=== PATIENT | female | born 1960 | race Caucasian/White ===

== ENCOUNTER → 2017-04-10 | Outpatient (CLI) | payer MEDICARE ==
[~2017-04-10] MED LIST: ACET10SO PO; ALB0.5 IH; ALB0.5 INH; ALB17R INH; ALBU8.5H IH; ALP1 PO; ALPR-451 PO; ALPR-461 PO; AMIL1TAB PO; AMLO-104 PO; AMOX-559 PO; ASPI-1471 PO; ASPI-292 PO; ASPI-757 PO; ASPI-879 PO; ATOR20TA22 PO; ATOR20TA65 PO; AZE137NAPT NS; AZIT-17 PO; BAC15T TOP; BLOO1STR16 MC; CEFP200T18 PO; CEPH-13 PO; CEPH500C24 PO; CHOL200038 PO; CLON-303 PO; CLONAZAPAM; COZAAR; CYC10 PO; CYCL-277 PO; CYCL-332 PO; DOCU-416 PO; DOXY-181 PO; DULO30CA6 PO; EST625 PO; ESTR0.62 PO; ESTR1.2525 PO; FEXO180T74 PO; FEXO180T87 PO; FLU150 PO; FLU44R INH; FLU45SYR17 IM; FLU45SYR25 IM ONLY; FLU60SYR30 IM ONLY; FLUC150T40 PO; FLUT10SP; FLUT16SP19 NS; FURO-45 PO; GABA-547 PO; GABA-549 PO; GLIP-152 PO; GLIP-154 PO; GLUC500C29 PO; GOLYTE PO; HUMALOG SC; HYDR-4240 PO; INSU100I30 SQ; IRO150 PO; LANI SC; LANI SUBQ; LANS30CA63 PO; LEVO25TA61 PO; LEVO50TA86 PO; LINA5TAB PO; LOR5/325 PO; LOS50 PO; LOSA50TA67 PO; LOSA50TA72 PO; MEP50 PO; MEPE50TA30 PO; MET10 PO; MET850 PO; METF-408 PO; METF-410 PO; METF-415 PO; METH4TAB66 PO; METO-259 PO; MOD PO; MON10 PO; MONT10TA22 PO; MONT10TA4 PO; MULT-885 PO; MULT1CAP59 PO; NEED-396 MC; NEED-653 MC; NITR0.3T6 SL; NYSL PO; OLO2ODPT OP; ONDA4TAB PO; OXYGENHOME INH; P EP PO; PAN40 PO; PER PO; PHEN-530 PO; POTA20TA85 PO; POTA8CAP9 PO; PRO25 PO; PROM-100 PO; PROM-110 PO; QUE25 PO; QUET50TA PO; QUET50TA21 PO; RAN150 PO; SER50 PO; SERT-173 PO; SERT-181 PO; SITA100T9 PO; SPIR25TA78 PO; SUC1 PO; SUCR1TAB51 PO; SULF-196 PO; SULF-198 PO; TIZ4 PO; TOP100 PO; TOPI-28 PO; TOPI100T92 PO; TOPI200T61 PO; TOPI50TA99 PO; TRAZ150T8 PO; TRAZ300T17 PO; TRIA15CR40 TP; VIT E PO; ZOLP-350 PO; ZOLP-360 PO; [UNRECOGNIZED DRUG - CODE] PO; [UNRECOGNIZED DRUG - CODE] PO; [UNRECOGNIZED DRUG - CODE] PO; [UNRECOGNIZED DRUG - CODE] PO; [UNRECOGNIZED DRUG - OTHER]; [UNRECOGNIZED DRUG - REMARK]
--- NOTE | 2017-04-10 13:58 | RADIOLOGY IMAGING REPORT ---
[place] [facility] [place]: Regi Hernandez : 1960 MR: [id number] V: [id number] EXAM DATE: ORDERING PHYSICIAN: HELEN PAULA TECHNOLOGIST: Location: [facility] Patient: Regi Hernandez : 1960 Visit/Account:[id number] Date of Sevice: 04/10/2017 EXAMINATION: CT of the Paranasal Sinuses HISTORY: Sinusitis TECHNIQUE: Contiguous axial images were obtained through the paranasal sinuses without intravenous c ontrast administration. Coronal and sagittal reformatted images were obtained from the axial source d selena. One of the following dose optimization techniques was utilized in the performance of this exam: Autom ated exposure control; adjustment of the mA and/or kV according to the patient's size; or use of an i terative reconstruction technique. Specific details can be referenced in the facility's radiology C T exam operational policy. COMPARISON: 03/27/2013. FINDINGS: Maxillary sinuses: Mild mucosal thickening in the right maxillary sinus. Otherwise negative. Frontal sinuses: The left frontal sinus is dominant. Otherwise negative. Ethmoid air cells: The ethmoid air cells are clear. Pneumatized miguel surinder draining to the left. Otherwise negative. Sphenoid sinuses: Negative. Ostiomeatal units: Patent. Nasal septum / nasal cavity: Leftward nasal septal deviation. Orbits: Negative. Visualized intracranial contents/soft tissues: Negative. TMJs: Negative. IMPRESSION: 1. Mild mucosal thickening in the right maxillary sinus. Paranasal sinuses are otherwise clear. 2. Leftward nasal septal deviation. Report Dictated By: Irving Love MD at 04/10/2017 1:50 PM Report E-Signed By: Irving Love MD at 04/10/2017 1:54 PM WSN:[id number]
== END ==
LOC: CT 02:12
PROVIDERS: ATTEND Internal Medicine
DX: J34.89 Other specified disorders of nose and nasal sinuses (principal); J34.2 Deviated nasal septum
CPT/HCPCS: 70486

== ENCOUNTER → 2017-04-10 | Outpatient (CLI) | payer MEDICARE ==
[~2017-04-10] MED LIST changes: +IPRN ENA
== END ==
LOC: LAB 13:06
PROVIDERS: ATTEND Nurse Practitioner Family
DX: E03.9 Hypothyroidism, unspecified (principal); E11.65 Type 2 diabetes mellitus with hyperglycemia; N18.9 Chronic kidney disease, unspecified; J01.91 Acute recurrent sinusitis, unspecified; J34.89 Other specified disorders of nose and nasal sinuses; J34.2 Deviated nasal septum
CPT/HCPCS: 36415; 70486; 82040; 82247; 82310; 82374; 82435; 82565; 82947; 83036; 84075; 84132; 84155; 84295; 84443; 84450; 84460; 84520

== ENCOUNTER → 2017-07-03 | Outpatient (CLI) | payer MEDICARE ==
[~2017-07-03] MED LIST changes: +FLUC100T39 PO
== END ==
LOC: LAB 13:45
PROVIDERS: ATTEND Otolaryngology
DX: J30.9 Allergic rhinitis, unspecified (principal)
CPT/HCPCS: 36415; 86003

== ENCOUNTER → 2017-07-18 | Outpatient (CLI) | payer MEDICARE | LOC: LAB 15:34 | PROVIDERS: ATTEND Nurse Practitioner Family | DX: E11.65 Type 2 diabetes mellitus with hyperglycemia (principal); E87.6 Hypokalemia; I12.9 Hypertensive chronic kidney disease with stage 1 through stage 4 chronic kidney disease, or unspecified chronic kidney disease; N18.9 Chronic kidney disease, unspecified | CPT/HCPCS: 36415; 82040; 82247; 82310; 82374; 82435; 82565; 82947; 83036; 84075; 84132; 84155; 84295; 84443; 84450; 84460; 84520 ==

== ENCOUNTER → 2017-07-24 | Outpatient (CLI) | payer MEDICARE ==
[~2017-07-24] MED LIST changes: -METF-410 PO; +METF-411 PO
--- NOTE | 2017-07-24 09:55 | RADIOLOGY IMAGING REPORT ---
[place] [facility] [place] Regi [place] : 1960 MR: [id number] V: [id number] EXAM DATE: ORDERING PHYSICIAN: DARNELL MENDIETA TECHNOLOGIST: Location: [facility] Patient: Regi Hernandez : 1960 Visit/Account:[id number] Date of Sevice: 07/24/2017 Study: CT scan of the brain without intravenous contrast. Indication: Headache, fall one week ago Comparison study:None Technique: Multiple axial images were obtained through the brain without the use of intravenous contr ast. One of the following dose optimization techniques was utilized in the performance of this exam: Autom ated exposure control; adjustment of the mA and/or kV according to the patient's size; or use of an i terative reconstruction technique. Specific details can be referenced in the facility's radiology C T exam operational policy. The examination demonstrates no evidence of acute intracranial hemorrhage. There is no evidence of ex tra-axial collection or hydrocephalus. There is no abnormal density identified within the brain parenchyma. There is no evidence of disruption of the peripheral quinones-white junction. The bony structures are unremarkable. IMPRESSION:Unremarkable CT scan of the brain without contrast. Report Dictated By: Kiko Cancino at 07/24/2017 9:51 AM Report E-Signed By: Kiko Cancino at 07/24/2017 9:52 AM WSN:[id number]
== END ==
LOC: CT 01:44
PROVIDERS: ATTEND Nurse Practitioner Family
DX: R51 Headache (principal)
CPT/HCPCS: 70450

== ENCOUNTER → 2017-08-01 | Outpatient (CLI) | payer MEDICARE ==
[~2017-08-01] MED LIST changes: +DULO60CA56 PO; +LOSA100T67 PO
== END ==
LOC: LAB 16:46
PROVIDERS: ATTEND Nurse Practitioner Family
DX: I10 Essential (primary) hypertension (principal)
CPT/HCPCS: 36415; 82310; 82374; 82435; 82565; 82947; 84132; 84295; 84520

== ENCOUNTER → 2017-08-15 | Outpatient (CLI) | payer MEDICARE | LOC: LAB 16:11 | PROVIDERS: ATTEND Otolaryngology | DX: E11.65 Type 2 diabetes mellitus with hyperglycemia (principal); N18.9 Chronic kidney disease, unspecified; J31.0 Chronic rhinitis | CPT/HCPCS: 36415; 82310; 82374; 82435; 82565; 82947; 83036; 84132; 84295; 84520; 86255 ==

== ENCOUNTER → 2017-08-31 | Outpatient (CLI) | payer MEDICARE ==
[2017-08-31 15:33] LABS: PLATELET COUNT, AUTOMATED 239 K/uL (150-450)
== END ==
LOC: LAB 14:53
PROVIDERS: ATTEND Nurse Practitioner Family
DX: R06.01 Orthopnea (principal); R06.02 Shortness of breath
CPT/HCPCS: 36415; 82040; 82247; 82310; 82374; 82435; 82565; 82947; 83880; 84075; 84132; 84155; 84295; 84450; 84460; 84520; 85025

== ENCOUNTER → 2017-09-04 | Outpatient (CLI) | payer MEDICARE | LOC: RESP 06:59 | PROVIDERS: ATTEND Nurse Practitioner Family | DX: R06.02 Shortness of breath (principal) | CPT/HCPCS: 94060; 94726; 94729 ==

== ENCOUNTER → 2018-01-09 | Outpatient (CLI) | payer MEDICARE ==
[~2018-01-09] MED LIST changes: +FLU150 FT; -LOSA100T67 PO; +LOSA100T69 PO; -LOSA50TA72 PO; +LOSA50TA74 PO; +MECL25TA9 PO; -MEPE50TA30 PO; +MEPE50TA41 PO; -METF-411 PO; +METF-450 PO; +PRAZ1CAP26 PO; +PRAZ2CAP26 PO; +PROP40TA45 PO; +SCOP1PAT16 TOP; -SPIR25TA78 PO; +SPIR25TA80 PO
[2018-01-10 13:09] LABS: PLATELET COUNT, AUTOMATED 256 K/uL (150-450)
== END ==
LOC: LAB 16:32
PROVIDERS: ATTEND Nurse Practitioner Family
DX: E11.65 Type 2 diabetes mellitus with hyperglycemia (principal); E78.00 Pure hypercholesterolemia, unspecified; N18.3 Chronic kidney disease, stage 3 (moderate); I10 Essential (primary) hypertension
CPT/HCPCS: 36415; 82040; 82247; 82310; 82374; 82435; 82465; 82565; 82947; 83036; 83718; 84075; 84132; 84155; 84295; 84443; 84450; 84460; 84478; 84520; 85025

== ENCOUNTER → 2018-02-13 | Outpatient (CLI) | payer MEDICARE | LOC: LAB 13:48 | PROVIDERS: ATTEND Internal Medicine Nephrology | DX: N18.3 Chronic kidney disease, stage 3 (moderate) (principal); E11.9 Type 2 diabetes mellitus without complications; I10 Essential (primary) hypertension | CPT/HCPCS: 36415; 82040; 82306; 82310; 82374; 82435; 82565; 82570; 82947; 83970; 84100; 84132; 84156; 84295; 84520; 85018 ==

== ENCOUNTER → 2018-05-03 | Outpatient (CLI) | payer MEDICARE ==
[~2018-05-03] MED LIST changes: +INSU100I5 SUBQ; +LIDO113G2 TP; -LOSA100T69 PO; +LOSA100T75 PO; -LOSA50TA74 PO; +LOSA50TA80 PO
== END ==
LOC: LAB 15:32
PROVIDERS: ATTEND Nurse Practitioner Family
DX: E11.22 Type 2 diabetes mellitus with diabetic chronic kidney disease (principal)
CPT/HCPCS: 36415; 83036

== ENCOUNTER → 2018-07-26 | Outpatient (CLI) | payer MEDICARE | LOC: LAB 15:40 | PROVIDERS: ATTEND Nurse Practitioner Family | DX: E11.22 Type 2 diabetes mellitus with diabetic chronic kidney disease (principal); N18.9 Chronic kidney disease, unspecified; I10 Essential (primary) hypertension | CPT/HCPCS: 36415; 82040; 82247; 82310; 82374; 82435; 82565; 82947; 83036; 84075; 84132; 84155; 84295; 84443; 84450; 84460; 84520 ==